=== PATIENT | male | born 1990 | race Caucasian/White ===

== ENCOUNTER 2020-08-29 17:02 | Emergency (ER) | payer OTHER ==
--- NOTE | 2020-08-29 17:42 | EDM.PDOC ---
ED HPI GENERAL MEDICAL PROBLEM - General Chief Complaint: Respiratory Problem Stated Complaint: HIGH BLOOD PRESSURE Time Seen by Provider: 08/29/20 17:34 Source of Information: Reports: Patient History Limitations: Reports: No Limitations - History of Present Illness INITIAL COMMENTS - FREE TEXT/NARRATIVE: Wm comes into [facility] with a 24 hour hx of chest congestion, non productive cough, and malaise. Sxs seem more noticeable today while deer hunting. There is no fever, chills, sweats, GI upset or headache. Admission 02 sats. 97%. His BP was also elevated this pm. Of interest, his spouse was diagnosed with Covid 19 on August 25. - Related Data Allergies Allergy/AdvReac Type Severity Reaction Status Date / Time No Known Allergies Allergy Verified 08/29/20 17:43 Home Meds: Home Meds NK [No Known Home Meds] 08/29/20 [History] ED ROS GENERAL - Review of Systems Review Of Systems: Comprehensive ROS is negative, except as noted in HPI. ED EXAM, GENERAL - Physical Exam Exam: See Below Exam Limited By: No Limitations General Appearance: Alert, WD/WN, No Apparent Distress, Obese Eye Exam: Bilateral Eye: EOMI, Normal Inspection, PERRL Ears: Normal External Exam Nose: Normal Inspection Throat/Mouth: Normal Inspection, Normal Gums, Normal Oropharynx, Normal Voice, No Airway Compromise Head: Normocephalic Neck: Normal Inspection, Supple, Non-Tender Respiratory/Chest: No Respiratory Distress, Normal Breath Sounds, No Accessory Muscle Use, Chest Non-Tender, Crackles Cardiovascular: Regular Rate, Rhythm, No Murmur GI/Abdominal: Soft, Non-Tender, No Organomegaly, No Distention, No Mass (Male) Exam: Deferred Rectal (Males) Exam: Deferred Back Exam: Normal Inspection Extremities: Normal Inspection Neurological: Alert, Oriented, CN II-XII Intact, Normal Cognition, Normal Gait, No Motor/Sensory Deficits Psychiatric: Normal Affect, Normal Mood Skin Exam: Warm, Dry, Intact, Normal Color, No Rash Lymphatic: No Adenopathy Course - Vital Signs Text/Narrative:: Following assessment, serial BP readings were obtained, final 168/103. Wm likely has essential HBP, and was advised to purchase a BP machine and take twice daily readings, and make an appt with PCP to begin therapy. His Covid 19 screen was negative. - Orders/Labs/Meds Labs: Laboratory Tests 08/29/20 Range/Units 17:35 SARS-CoV-2 RNA (TEGAN) Negative (NEGATIVE) Departure - Departure Time of Disposition: 18:40 Disposition: Home, Self-Care 01 Condition: Good Clinical Impression: Essential hypertension - Discharge Information *PRESCRIPTION DRUG MONITORING PROGRAM REVIEWED*: Not Applicable *COPY OF PRESCRIPTION DRUG MONITORING REPORT IN PATIENT RENNY: Not Applicable Referrals: PCP,None [Primary Care Provider] - Forms: ED Department Discharge - Problem List & Annotations (1) Essential hypertension SNOMED Code(s): 75360037 Code(s): I10 - ESSENTIAL (PRIMARY) HYPERTENSION Status: Acute Current Visit: Yes Annotation/Comment:: Purchase BP machine, and follow up with PCP. - Problem List Review Problem List Initiated/Reviewed/Updated: Yes - Assessment/Plan Plan: Follow up with PCP.
== END 2020-08-29 18:59 | disposition home or self-care (01) ==
LOC: FB.ED 17:02
DX: I10 Essential (primary) hypertension (principal); Z20.828 Contact with and (suspected) exposure to other viral communicable diseases
CPT/HCPCS: 99283; U0002

== ENCOUNTER 2023-07-12 22:16 | Emergency (ER) | payer OTHER ==
[2023-07-12] MEDS ORDERED: Cyclobenzaprine 10 MG Tab PO ONE (22:17)
[2023-07-12] MEDS ORDERED: traMADol 50 MG Tab PO ONE (22:17)
[2023-07-12] MEDS ORDERED: hydrOXYzine HCl 50 MG/ML SDV IM ONE (22:30)
[2023-07-12] MEDS ORDERED: HYDROmorphone 2 MG/ML SDV IM ONE (22:30)
== END 2023-07-12 23:00 | disposition home or self-care (01) ==
LOC: FB.ED 22:16
DX: M54.6 Pain in thoracic spine (principal); K21.9 Gastro-esophageal reflux disease without esophagitis; Z79.899 Other long term (current) drug therapy
CPT/HCPCS: 96372; 99283; A9270; J1170; J3410